=== PATIENT | male | born 1975 | race Caucasian/White ===

== ENCOUNTER 2019-02-15 17:27 | Emergency (ER) | payer MEDICAID ==
[~2019-02-15] VITALS: Ht 166.4 cm; Wt 95.3 kg
[2019-02-15 17:39] VITALS: BP 114/83
--- NOTE | 2019-02-15 17:42 | NUR ---
PT TO WAIT IN ER LOBBY. [id number]. VSS
--- NOTE | 2019-02-15 18:19 | NUR ---
PT TO ER BED 11
--- NOTE | 2019-02-15 18:50 | NUR ---
C/O RT FOREARM PAIN FOR 2 DAYS. PT STATES PAIN BEGAN WHILE AT WORK 2 DAYS AGO WHE LIFTING HEAVY BOXES AND POSSIBLY HITTING ARM ON OBJECT. NO TENDERNESSS TO AREA, NO REDNESS OR BRUSING NOTED. PT STATES PAIN IS WORSE WHEN FLEXINF WRIST UP AND DOWN.
--- NOTE | 2019-02-15 20:53 | NUR ---
Dr. Antunez examining patient.
[2019-02-15 21:17] VITALS: BP 114/56
--- NOTE | 2019-02-15 21:17 | NUR ---
DISCHAR PAPERS GIVEN TO PT. PT STATES PAIN 12/25 BUT TOLLERABLE. CARDIOVASCULAR AND SENSATION INTACT BEFORE/AFTER SPLINT APPLICATION. VSS. DISCHARGE PAPERS GIVEN TO PT. RX OF IBUPROFEN GIVEN. SIDE EFFECTS EXPLAINED. INSTRUCTED TO F/U WITH PCP AND WHEN TO RETURN TO ER. PT VERBALLIZED UNDERSTANDING OF DC INSTRUCTIONS. ALL QUESTIONS ANSWERED.
--- NOTE | 2019-02-15 21:17 | NUR ---
THUMB SPICA ON PTAS RIGHT LOWER ARM. PTS PMSC WNL
== END 2019-02-15 21:17 | disposition home or self-care (01) ==
LOC: MED 17:27
DX: M65.4 Radial styloid tenosynovitis [de Quervain] (principal)
CPT/HCPCS: 73090; 99283

== ENCOUNTER 2019-02-27 20:40 | Emergency (ER) | payer MEDICAID ==
[~2019-02-27] VITALS: Ht 170.2 cm; Wt 89.8 kg
[2019-02-27 21:00] VITALS: BP 180/98
--- NOTE | 2019-02-27 21:02 | NUR ---
TO LOBBY A/W BED AMBULATORY
[2019-02-27] MEDS ORDERED: ONDANSETRON 4 MG ODT PO ONE (22:20)
[2019-02-27] MEDS ORDERED: KETOROLAC 60 MG/2 ML VIAL IM ONE (22:20)
--- NOTE | 2019-02-27 22:20 | NUR ---
PT AMBULATED TO BED 12.
--- NOTE | 2019-02-27 22:35 | NUR ---
43 YO M BIB SELF AND PRESENTS TO ED C/O COUGH, VOMITING, SUBJECTIVE FEVER X 2 DAYS. PT ALSO C/O 10 RIGHT WRIST PAIN X 1 WEEK. PT STATES HE INJURED HIMSELF WHILE LIFTING BOXES. PT WAS ALREADY TREATED IN ED FOR THIS ISSUE; WRIST BRACE IN PLACE. -- PT AWAKE, ALERT, CALM, COOPERATIVE. ANSWERING QUESTIONS APPROPRIATELY. BEHAVIOR AGE APPROPRIATE. -- SKIN PINK, WARM, DRY. BREATHING EVEN, UNLABORED. PMH-- DENIES RX-- DENIES
--- NOTE | 2019-02-27 22:45 | NUR ---
MEDICATION ADMINISTERED ORDERED. RISKS/BENEFITS REVIEWED WITH PATIENT. WILL CONTINUE TO MONITOR.
[2019-02-27 23:11] VITALS: BP 124/75
--- NOTE | 2019-02-27 23:11 | NUR ---
Patient discharged with v/s stable. Written and verbal after care instructions given and explained. Patient alert, oriented and verbalized understanding of instructions. Ambulatory with steady gait. All questions addressed prior to discharge. ID band removed. Patient advised to follow up with PMD. Rx of Motrin, Prednisone, Zofran given. Patient educated on indication of medication including possible reaction and side effects. Opportunity to ask questions provided and answered.
== END 2019-02-27 23:11 | disposition home or self-care (01) ==
LOC: MED 20:40
DX: R05 Cough (principal); R11.2 Nausea with vomiting, unspecified; M25.531 Pain in right wrist
CPT/HCPCS: 96372; 99283; J1885; Q0162

== ENCOUNTER 2019-06-12 09:29 | Emergency (ER) | payer MEDICAID, OTHER ==
[~2019-06-12] VITALS: Ht 170.2 cm; Wt 84.8 kg
[2019-06-12 09:38] VITALS: BP 126/60
--- NOTE | 2019-06-12 09:46 | NUR ---
PATIENT AMBULATED TO BED 8.
--- NOTE | 2019-06-12 09:50 | NUR ---
44 Y/O MALE PRESENTED WITH C/C RIGHT SHOULDER PAIN SINCE TUESDAY. PER PATIENT BELIEVES IT WAS A WORK RELATED INJURY. PAIN IS 8/10; SHARP; CAUSE OF PAIN ROM. PT HAS NKA. NO MEDICAL HX. NO MEDICATIONS ON REGULAR BASIS. LAST ORAL INTAKE TODAY BREAKFAST. SIDE RAIL X1.
--- NOTE | 2019-06-12 09:55 | NUR ---
PT TAKEN TO XRAY VIA WHEELCHAIR BY [facility] [employer]
--- NOTE | 2019-06-12 09:58 | NUR ---
PT BACK FROM XRAY BIB WHEELCHAIR BY TECH
--- NOTE | 2019-06-12 10:30 | NUR ---
SLING PLACED ON RIGHT ARML; PT VERBALIZED UNDERSTANDING OF SLING.
[2019-06-12 10:31] VITALS: BP 131/64
== END 2019-06-12 10:31 | disposition home or self-care (01) ==
LOC: MED 09:29
DX: M25.511 Pain in right shoulder (principal); R03.0 Elevated blood-pressure reading, without diagnosis of hypertension
CPT/HCPCS: 73030; 99283

== ENCOUNTER 2019-07-26 19:44 | Emergency (ER) | payer OTHER ==
[~2019-07-26] VITALS: Ht 170.2 cm; Wt 88.5 kg
[2019-07-26 20:20] VITALS: BP 150/90
--- NOTE | 2019-07-26 20:23 | NUR ---
TO LOBBY A/W BED AMBULATORY
--- NOTE | 2019-07-26 23:00 | NUR ---
PATIENT LEFT WITHOUT BEING SEEN BY DR. HOLDEN. PT CALLED X3. NO FURTHER CARE PROVIDED FOR PATIENT.
--- NOTE | 2019-07-26 23:15 | NUR ---
CALLED IN LOBBY. NO ANSWER
== END 2019-07-26 23:00 | disposition left against medical advice (07) ==
LOC: MED 19:44
DX: M25.511 Pain in right shoulder (principal); M54.9 Dorsalgia, unspecified; Z53.21 Procedure and treatment not carried out due to patient leaving prior to being seen by health care provider
CPT/HCPCS: 73030; 99281

== ENCOUNTER 2019-08-05 14:51 | Emergency (ER) | payer OTHER ==
[~2019-08-05] VITALS: Ht 170.2 cm; Wt 88.5 kg
--- NOTE | 2019-08-05 15:13 | NUR ---
AMB TO BED 10 WITH STEADY GAIT
[2019-08-05 15:17] VITALS: BP 120/75
--- NOTE | 2019-08-05 15:20 | NUR ---
44/M C/O RT HAND PAIN X WEEKS. NO RECENT INJURY BUT STATES INJURIES TO THE HAND IN THE PAST. CONSTANLY USES TOOLS WITH RT HAND AT WORK. STATES STIFFNESS TO DIP AND PIP JOINTS IN THE RT HAND AND SWELLING TO FINGERS/HAND. UNABLE TO FULLY CLOSE RT HAND TO MAKE A FIST. HX- DENIES
[2019-08-05 15:58] VITALS: BP 120/75
--- NOTE | 2019-08-05 15:58 | NUR ---
Patient discharged with v/s stable. Written and verbal after care instructions given and explained. Patient alert, oriented and verbalized understanding of instructions. Ambulatory with steady gait. All questions addressed prior to discharge. ID band removed. Patient advised to follow up with PMD. Rx of ULTRAM given. Patient educated on indication of medication including possible reaction and side effects. Opportunity to ask questions provided and answered.
== END 2019-08-05 15:58 | disposition home or self-care (01) ==
LOC: MED 14:51
DX: M79.641 Pain in right hand (principal); X58.XXXA Exposure to other specified factors, initial encounter; Y93.89 Activity, other specified; Y92.89 Other specified places as the place of occurrence of the external cause; Y99.8 Other external cause status
CPT/HCPCS: 99283

== ENCOUNTER 2019-08-18 13:25 | Emergency (ER) | payer OTHER ==
[~2019-08-18] VITALS: Ht 170.2 cm; Wt 90.7 kg
[2019-08-18 13:40] VITALS: BP 119/64
--- NOTE | 2019-08-18 13:40 | NUR ---
PT TRIAGED, SENT BACK TO LOBBY AWAITING FOR BED
--- NOTE | 2019-08-18 14:15 | NUR ---
PT AMBULATED TO BED 11.
--- NOTE | 2019-08-18 14:20 | NUR ---
44 Y/O M C/C RIGHT SHOULDER/HAND PAIN 03/27 X2 MONTHS. DENIES ANY TRAUMA. CMS/ROM WDL. HAS TAKEN IBUPROFEN/TYLENOL WITH NO RELIEF. PT NKA. NO HX. NO RX. NO N/V/D. SIDE RAIL X1.
[2019-08-18] MEDS ORDERED: IBUPROFEN 600 MG TAB PO ONE (14:50)
[2019-08-18 15:00] VITALS: BP 119/64
== END 2019-08-18 15:00 | disposition home or self-care (01) ==
LOC: MED 13:25
DX: S63.8X1A Sprain of other part of right wrist and hand, initial encounter (principal); X58.XXXA Exposure to other specified factors, initial encounter; Y93.89 Activity, other specified; Y92.89 Other specified places as the place of occurrence of the external cause; Y99.8 Other external cause status
CPT/HCPCS: 99283

== ENCOUNTER 2021-01-20 20:34 | Emergency (ER) | payer OTHER ==
[~2021-01-20] VITALS: Ht 167.6 cm; Wt 92.5 kg
[2021-01-20 20:40] VITALS: BP 180/100
--- NOTE | 2021-01-20 20:43 | NUR ---
TO LOBBY AW/ BED AMBULATORY
[2021-01-20] MEDS ORDERED: IBUPROFEN 400 MG TAB PO ONE (23:00)
--- NOTE | 2021-01-20 23:07 | NUR ---
PT TAKEN TO BED 1
--- NOTE | 2021-01-21 00:05 | NUR ---
PATIENT REFUSED VITAL SIGN MONITORING.
[2021-01-21 00:23] VITALS: BP 180/100
--- NOTE | 2021-01-21 00:23 | NUR ---
PATIENT ELOPED FROM FACILITY. DISCHARGE INSTRUCTIONS NOT GIVEN TO PATIENT. DR. Hurt NOTIFIED.
[2021-01-21] MEDS ORDERED: IBUP-2213 PO (16:07)
== END 2021-01-21 00:23 | disposition left against medical advice (07) ==
LOC: MED 20:34
DX: M79.601 Pain in right arm (principal); M79.602 Pain in left arm; R07.9 Chest pain, unspecified; W11.XXXA Fall on and from ladder, initial encounter; Y93.89 Activity, other specified; Y92.89 Other specified places as the place of occurrence of the external cause; Y99.8 Other external cause status
CPT/HCPCS: 71101; 73090; 73130; 96361; 96374; 99284

== ENCOUNTER 2021-01-21 14:33 | Emergency (ER) | payer OTHER ==
[~2021-01-21] VITALS: Ht 167.6 cm; Wt 92.5 kg
[2021-01-21 14:39] VITALS: BP 141/88
[2021-01-21] MEDS ORDERED: IBUPROFEN 600 MG TAB PO ONE (14:55)
[2021-01-21] MEDS ORDERED: IBUP-2213 PO (16:07)
[2021-01-21 16:25] VITALS: BP 141/88
== END 2021-01-21 16:25 | disposition home or self-care (01) ==
LOC: MED 14:33
DX: R07.89 Other chest pain (principal); M79.602 Pain in left arm; R07.81 Pleurodynia; W19.XXXA Unspecified fall, initial encounter; Y93.89 Activity, other specified; Y92.89 Other specified places as the place of occurrence of the external cause; Y99.8 Other external cause status
CPT/HCPCS: 71046; 73090; 73120; 99284